=== PATIENT | female | born 1975 | race Caucasian/White ===

== ENCOUNTER 2021-10-28 05:13 | Day surgery (SDC) | payer OTHER ==
[2021-10-23 14:40] VITALS: BMI 26.6
[2021-10-28] MEDS ORDERED: MIDAZOLAM HCL 2 MG/2 ML SINGLE DOSE VIAL ONE (07:47)
[2021-10-28] MEDS ORDERED: PROPOFOL 20 ML ONE ×2 (07:47)
[2021-10-28] MEDS ORDERED: FERRIC SUBSULFATE 500 ML BOTTLE TP ONE (08:50)
[2021-10-28] MEDS ORDERED: IODINE/POTASSIUM IODIDE 5%/10% 14 ML BOTTLE NR ONE (08:58)
[2021-10-28] MEDS ORDERED: ONDANSETRON 4 MG/2 ML VIAL IVPUSH PRN (09:57)
[2021-10-28] MEDS ORDERED: oxyCODONE HCL 5 MG TABLET PO PRN ×2 (09:57)
[2021-10-28] MEDS ORDERED: LACTATED RINGERS SOLUTION 1,000 ML IV SCH (10:00)
[2021-10-28] MEDS ORDERED: KETOROLAC TROMETHAMINE 30 MG/1 ML VIAL ONE (10:50)
[2021-10-28] MEDS ORDERED: DEXAMETHASONE SOD PHOSPHATE 4 MG/1 ML VIAL ONE (10:50)
[2021-10-28] MEDS ORDERED: LIDOCAINE HCL/PF 2% SDV 5ML VIAL ONE (10:50)
[2021-10-28 13:48] VITALS: BP 106/66; PULSE 75; TEMP 97.8
== END 2021-10-28 13:25 | disposition home or self-care (01) ==
LOC: JASU-SURG 05:13
PROVIDERS: ATTEND Obstetrics & Gynecology
PROC: 0UBC7ZX Excision of Cervix, Via Natural or Artificial Opening, Diagnostic (ICD-10-PCS; principal; 2021-10-28 08:00)
DX: D06.0 Carcinoma in situ of endocervix (principal)
CPT/HCPCS: 81025; 88305-TC; 94760

== ENCOUNTER 2023-10-28 05:10 | Day surgery (SDC) | payer OTHER ==
[2023-10-15 15:27] VITALS: BMI 26.2
[2023-10-28] MEDS ORDERED: FENTANYL CITRATE/PF 50 MCG/ML VIAL ONE (09:47)
[2023-10-28] MEDS ORDERED: MIDAZOLAM HCL 2 MG/2 ML SINGLE DOSE VIAL ONE (09:47)
[2023-10-28] MEDS ORDERED: SODIUM CHLORIDE 0.9% P/F 10 ML VIAL IJ ONE (09:51)
[2023-10-28] MEDS ORDERED: ceFAZolin SODIUM 1 GM VIAL ONE (09:51)
[2023-10-28] MEDS ORDERED: DEXAMETHASONE SOD PHOSPHATE 4 MG/1 ML VIAL ONE ×2 (09:51→11:21)
[2023-10-28] MEDS ORDERED: ONDANSETRON 4 MG/2 ML VIAL ONE ×3 (09:51→12:23)
[2023-10-28] MEDS ORDERED: LIDOCAINE HCL/PF 2% SDV 5ML VIAL ONE (09:51)
[2023-10-28] MEDS ORDERED: ROCURONIUM BROMIDE 50 MG/5 ML SYRINGE ONE (09:53)
[2023-10-28] MEDS ORDERED: SUGAMMADEX SODIUM 200 MG/2 ML VIAL ONE ×2 (09:55→12:23)
[2023-10-28] MEDS ORDERED: COCAINE HCL 4% TOPICAL SOLUTION 4 ML BOTTLE TP ONE (10:00)
[2023-10-28] MEDS ORDERED: oxyCODONE HCL 5 MG TABLET PO PRN (11:09)
[2023-10-28] MEDS ORDERED: ONDANSETRON 4 MG/2 ML VIAL IVPUSH PRN (11:09)
[2023-10-28] MEDS ORDERED: LACTATED RINGERS SOLUTION 1,000 ML IV SCH (11:15)
[2023-10-28] MEDS ORDERED: PROPOFOL 40 ML ONE (11:22)
[2023-10-28] MEDS ORDERED: ACETAMINOPHEN INJECTION 100 ML IVPB ONE (11:22)
[2023-10-28] MEDS ORDERED: HYDROmorphone HCl 2 MG/ML VIAL ONE (11:32)
[2023-10-28] MEDS: ceFAZolin SODIUM 1 GM VIAL IVPB ONE (11:35)
[2023-10-28] MEDS: COCAINE HCL 4% TOPICAL SOLUTION 4 ML BOTTLE TP ONE (11:53)
[2023-10-28] MEDS: LIDOCAINE 1%/EPI 1:100000 (20 ML MULTI DOSE VIAL) IJ ONE ×2 (12:08)
[2023-10-28 17:11] VITALS: TEMP 97
[2023-10-28 17:17] VITALS: BP 117/72; PULSE 78; RESP 20
== END 2023-10-28 15:52 | disposition home or self-care (01) ==
LOC: JASU-SURG 05:10
PROVIDERS: ATTEND Otolaryngology
PROC: 09BU8ZZ Excision of Right Ethmoid Sinus, Via Natural or Artificial Opening Endoscopic (ICD-10-PCS; 2023-10-28)
PROC: 09BV8ZZ Excision of Left Ethmoid Sinus, Via Natural or Artificial Opening Endoscopic (ICD-10-PCS; principal; 2023-10-28 11:00)
DX: J33.8 Other polyp of sinus (principal); J32.2 Chronic ethmoidal sinusitis; J32.0 Chronic maxillary sinusitis; J34.3 Hypertrophy of nasal turbinates
CPT/HCPCS: 81025; 88304-TC; 88311-TC; 94760; J0131